=== PATIENT | male | born 1980 | race African-American/Black ===

== ENCOUNTER 2021-09-05 08:48 | Emergency (ER) | payer MEDICARE, OTHER ==
[~2021-09-05] VITALS: Ht 180.3 cm; Wt 120.0 kg
[2021-09-05 09:37] LABS: BASOPHILS % (AUTO) 0.9 % (0.0-2.0); HEMATOCRIT 31.2 % (41-53); HEMOGLOBIN 10.3 g/dL (13.5-17.5); LYMPHOCYTES # (AUTO) 1.6 K/uL (1.0-4.8); LYMPHOCYTES % (AUTO) 20.7 % (22.0-44.0); MEAN CORPUSCULAR HEMOGLOBIN 27.7 pg (26.0-34.0); MEAN CORPUSCULAR HGB CONC 32.9 G/dL (31.0-37.0); MEAN CORPUSCULAR VOLUME 84 fL (80-100); MONOCYTES # (AUTO) 0.6 K/uL (0.1-1.0); MONOCYTES % (AUTO) 7.3 % (2.0-9.0); NEUTROPHILS # (AUTO) 4.3 K/uL (1.8-7.7); NEUTROPHILS % (AUTO) 55.9 % (40.0-70.0); PLATELET COUNT (AUTO) 299 K/uL (150-450); RED CELL DISTRIBUTION WIDTH 14.6 % (11.5-14.5)
[2021-09-05 09:42] LABS: EOSINOPHILS % (AUTO) 15.2 % (1.0-6.0)
[2021-09-05 09:46] LABS: CALCIUM, TOTAL 8.3 mg/dL (8.8-10.5); CREATININE 2.37 mg/dL (0.60-1.30); POTASSIUM 4.1 mmol/L (3.5-5.1)
[2021-09-05 10:16] VITALS: BP 151/78
== END 2021-09-05 10:23 | disposition home or self-care (01) ==
LOC: EMS 08:48
DX: L20.9 Atopic dermatitis, unspecified (principal); N28.9 Disorder of kidney and ureter, unspecified; E11.9 Type 2 diabetes mellitus without complications; I10 Essential (primary) hypertension
CPT/HCPCS: 71045; 80048; 82962; 85025; 99284; 36415-L1; 36415-TC